=== PATIENT | female | born 1945 ===

== ENCOUNTER 2021-06-19 19:29 | Emergency (ER) | payer OTHER ==
[~2021-06-19] VITALS: Ht 154.9 cm; Wt 71.2 kg
[2021-06-19] MEDS ORDERED: LOSARTAN POTAS100 MG PO (19:40)
[2021-06-19] MEDS ORDERED: AMLODIPINE-OLM1 EAC2 PO (19:41)
[2021-06-19] MEDS ORDERED: ATORVASTATIN CA10 MG PO ×2 (19:41→19:42)
[2021-06-19] MEDS ORDERED: METOPROLOL SUCC50 MG PO (19:41)
[2021-06-19] MEDS ORDERED: ADULT ASPIRIN81 MG PO (19:42)
[2021-06-19] MEDS ORDERED: FORTAMET500 MG PO (19:42)
[2021-06-20] MEDS ORDERED: CIPRO500 MG PO (16:12)
== END 2021-06-20 18:51 | disposition home or self-care (01) ==
LOC: ER 19:29
DX: I87.2 Venous insufficiency (chronic) (peripheral) (principal); N39.0 Urinary tract infection, site not specified; Z11.52 Encounter for screening for COVID-19